=== PATIENT | female | born 1950 | race Caucasian/White ===

== ENCOUNTER 2021-04-23 06:25 | Day surgery (SDC) | payer MEDICARE, MEDICAID ==
[2021-04-23] MEDS: Lactated Ringers 1,000 ML IV SCH (07:07)
[2021-04-23] MEDS ORDERED: fentaNYL 100 MCG/2 ML SDV ONE (07:41)
[2021-04-23] MEDS ORDERED: Midazolam 1 MG/ML 2 ML SDV ONE (07:41)
[2021-04-23] MEDS ORDERED: Propofol 200 MG/20 ML SDV ONE ×2 (07:41→08:07)
--- NOTE | 2021-04-23 13:12 | OR ---
PREOPERATIVE DIAGNOSIS: History of colon polyps. POSTOPERATIVE DIAGNOSIS: Inadequate prep. PROCEDURE PERFORMED: Total flexible colonoscopy. ANESTHESIA: MAC anesthesia. COMPLICATIONS: None apparent. BLOOD LOSS: Minimal. FINDINGS: There was a large amount of liquid stool with fibrous contents throughout the colon which could not completely be suctioned. We were able to thoroughly examine approximately 70% of the mucosa. The ileocecal valve was identified but the appendix was obscured by stool. START TIME: 0746. CECUM TIME: 0807. STOP TIME: 0814. BOWEL PREP: Imperial class 1. INDICATION FOR PROCEDURE: Vonda Pandey is a 70-year-old female who reports of colonoscopy last performed 10 years ago. She reports a history of polyps. She denies currently any bloody or dark black stools. No family history of colon cancer. DETAILS OF PROCEDURE: After informed consent was obtained, the patient was brought to the procedure room, placed in left lateral decubitus position. MAC anesthesia was induced per anesthesia colleagues without incident. The colonoscope was introduced into the rectum and advanced all the way to the cecum. Advancement took quite a bit longer than usual as there was a large amount of liquid stool with fibrous contents which made identification of the lumen persistently difficult. Ultimately, we were able to identify due to the cecal valve, but the cecum contained a large amount of stool and the appendix was obscured. The colonoscope was then slowly withdrawn. No polyps were identified, although as mentioned, we were unable to make a complete evaluation of the colon. Retroflexed view was obtained. The colonoscope was removed. The patient was awoken from anesthesia by Anesthesia colleagues without incident. Recommend repeat screening colonoscopy within the next 2 years given poor prep. RKM: 04/23/2021 08:20:17 MODL: 04/23/2021 11:05:14 /[id number]
== END 2021-04-23 09:10 | disposition home or self-care (01) ==
LOC: VM.SDS 06:25
PROVIDERS: ATTEND Student in an Organized Health Care Education/Training Program
DX: Z12.11 Encounter for screening for malignant neoplasm of colon (principal); M17.11 Unilateral primary osteoarthritis, right knee; R30.0 Dysuria; E11.9 Type 2 diabetes mellitus without complications; J45.30 Mild persistent asthma, uncomplicated; I12.9 Hypertensive chronic kidney disease with stage 1 through stage 4 chronic kidney disease, or unspecified chronic kidney disease; N18.32 Chronic kidney disease, stage 3b; Z86.010 Personal history of colon polyps; Z88.2 Allergy status to sulfonamides; E66.9 Obesity, unspecified; Z68.32 Body mass index [BMI] 32.0-32.9, adult; G47.33 Obstructive sleep apnea (adult) (pediatric); E78.5 Hyperlipidemia, unspecified
CPT/HCPCS: 00811; 82947; G0121; J2250; J2704; J3010; J7120

== ENCOUNTER 2021-07-28 17:27 | Emergency (ER) | payer MEDICARE, MEDICAID ==
[2021-07-28] MEDS ORDERED: Sodium Chloride 0.9% 10 ML Syringe FLUSH PRN (17:39)
[2021-07-28] MEDS ORDERED: Aspirin 81 MG Tab.Chew PO ONE (17:40)
--- NOTE | 2021-07-28 17:42 | EDM.PDOC ---
<Sebastien Aragon - Last Filed: 07/28/21 18:58> ED HPI GENERAL MEDICAL PROBLEM - General Chief Complaint: Cardiovascular Problem Stated Complaint: CHEST PAIN Time Seen by Provider: 07/28/21 17:35 Source of Information: Reports: Patient History Limitations: Reports: No Limitations - History of Present Illness INITIAL COMMENTS - FREE TEXT/NARRATIVE: Patient comes to the ED with complaints of severe neck, jaw, back and chest pain at around 4:30 this afternoon. Reports one other episode of this in her history. No report of prior IN or CVA. No early deaths in the family from either. Her pain resolved after 30 minutes and after resting. No worsening of symptoms with movement. Not reproducible. No nausea or vomiting. No diaphoresis or pallor. Pain orignates in the neck, down to the chest and back. Pain is resolved. EMS called but she refused transportation. Daughter drove her here. During history collection states she began having body aches, chills, nausea, congestion starting on Monday of last week. No fever or chills. [place] some was a result of allergies. Fully vaccinated with either moderna or A2B, she does not recall. No numbness, no history of early familial due to aortic dissection. No neurologic deficits. Limb blood pressures within 20 mmHg systolic. Duration: Resolved Prior to Arrival Location: Reports: Neck, Chest, Back Quality: Reports: Sharp Severity: Moderate Improves with: Reports: Rest Associated Symptoms: Reports: Chest Pain - Related Data Allergies Allergy/AdvReac Type Severity Reaction Status Date / Time Sulfa (Sulfonamide Allergy Hives Verified 07/28/21 18:03 Antibiotics) Home Meds: Home Meds Metoprolol Succinate [Toprol XL] 100 mg PO DAILY 09/21/17 [History] Simvastatin [Zocor] 20 mg PO BEDTIME 09/21/17 [History] metFORMIN HCl [Metformin HCl] 1,000 mg PO BID 09/21/17 [History] Acetaminophen [Tylenol] 650 mg PO Q4H PRN 04/05/21 [History] Albuterol Sulfate [Albuterol Sulfate HFA] 2 puff INH Q4H PRN 04/05/21 [History] Budesonide/Formoterol Fumarate [Symbicort 160-4.5 Mcg Inhaler] 2 puff IH BID 04/05/21 [History] Citalopram Hydrobromide [Celexa] 40 mg PO DAILY 04/05/21 [History] Diclofenac Sodium [Voltaren 1% Gel] 2 gm TOP BID PRN 04/05/21 [History] Ferrous Sulfate 325 mg PO DAILY 04/05/21 [History] Gabapentin [Neurontin] 100 - 200 mg PO BEDTIME 04/05/21 [History] Liraglutide [Victoza 2-Guzman] 1.8 mg SQ DAILY 04/05/21 [History] Omeprazole 20 mg PO ACBREAKFAST 04/05/21 [History] Oxybutynin 5 mg PO BID 04/05/21 [History] Sennosides/Docusate Sodium [Senna-Docusate Sodium Tablet] 1 each PO BID 04/05/21 [History] allopurinoL [Zyloprim] 100 mg PO DAILY 04/05/21 [History] Past Medical History Cardiovascular History: Reports: High Cholesterol, Hypertension, Other (See Below) Other Cardiovascular History: venous insufficiency Respiratory History: Reports: Asthma, Sleep Apnea Gastrointestinal History: Reports: GERD Genitourinary History: Reports: Renal Disease, Urinary Incontinence Psychiatric History: Reports: Anxiety, Depression, PTSD, Other (See Below) Other Psychiatric History: maladaptive health behaviors affecting medical condition Endocrine/Metabolic History: Reports: Diabetes, Type II, Obesity/BMI 30+ Other Endocrine/Metabolic History: hyperkalemia Hematologic History: Reports: Anemia, Iron Deficiency Dermatologic History: Reports: Eczema - Past Surgical History HEENT Surgical History: Reports: Cataract Surgery, Tonsillectomy GI Surgical History: Reports: Colonoscopy, Other (See Below) Other GI Surgeries/Procedures: panniculectomy with umbilical hernia repair Female Surgical History: Reports: Section ED ROS GENERAL - Review of Systems Review Of Systems: See Below Constitutional: Reports: No Symptoms HEENT: Reports: No Symptoms Respiratory: Reports: No Symptoms Cardiovascular: Reports: Chest Pain Endocrine: Reports: No Symptoms GI/Abdominal: Reports: No Symptoms : Reports: No Symptoms Musculoskeletal: Reports: Neck Pain, Back Pain Skin: Reports: No Symptoms Neurological: Reports: No Symptoms Psychiatric: Reports: No Symptoms Hematologic/Lymphatic: Reports: No Symptoms Immunologic: Reports: No Symptoms ED EXAM, GENERAL - Physical Exam Exam: See Below Exam Limited By: No Limitations General Appearance: Alert, WD/WN, No Apparent Distress Ears: Normal External Exam, Normal Canal, Hearing Grossly Normal, Normal TMs Ear Exam: Bilateral Ear: Auricle Normal, Canal Normal, TM normal Nose: Normal Inspection, Normal Mucosa, No Blood Throat/Mouth: Normal Inspection, Normal Lips, Normal Teeth, Normal Gums, Normal Oropharynx, Normal Voice, No Airway Compromise Head: Atraumatic, Normocephalic Neck: Normal Inspection, Supple, Non-Tender, Full Range of Motion Respiratory/Chest: No Respiratory Distress, Lungs Clear, Normal Breath Sounds, No Accessory Muscle Use, Chest Non-Tender Cardiovascular: Normal Peripheral Pulses, Regular Rate, Rhythm, No Edema, No Gallop, No JVD, No Murmur, No Rub GI/Abdominal: Normal Bowel Sounds, Soft, Non-Tender, No Organomegaly, No Distention, No Abnormal Bruit, No Mass Back Exam: Normal Inspection, Full Range of Motion, NT Extremities: Normal Inspection, Normal Range of Motion, Non-Tender, Normal Capillary Refill, No Pedal Edema Neurological: Alert, Oriented, CN II-XII Intact, Normal Cognition, Normal Gait, Normal Reflexes, No Motor/Sensory Deficits Psychiatric: Normal Affect, Normal Mood Skin Exam: Warm, Dry, Intact, Normal Color, No Rash Lymphatic: No Adenopathy #1 Interpretation EKG Date: 07/28/21 Time: 17:27 Rhythm: NSR Rate (Beats/Min): 53 [place]: LAD-Left [place] Deviation (Slight bradycardia, left axis deviation) P-Wave: Present QRS: Normal ST-T: Normal QT: Normal Comparison: NA - No Prior EKG Departure - Departure Disposition: Home, Self-Care 01 Clinical Impression: Atypical chest pain Referrals: Renea Rivera MD [Primary Care Provider] - Forms: ED Department Discharge Additional Instructions: 1. Push fluids 2. Tylenol or ibuprofen for discomfort 3. Follow up with primary care provider if any ongoing pain or return to the ER for any recurring chest pain <Maryana Corrigan - Last Filed: 07/28/21 21:19> Course - Vital Signs Last Recorded V/S: Last Vital Signs Temp 97.8 F 07/28/21 17:30 Pulse 54 L 07/28/21 18:24 Resp 9 L 07/28/21 18:24 BP 140/65 07/28/21 18:24 Pulse Ox 96 07/28/21 18:24 - Orders/Labs/Meds Orders: Active Orders 24 hr Category Date Time Status Chest PE [Ang Chest] [CT] Stat Exams 07/28/21 18:45 Taken Sodium Chloride 0.9% [Saline Flush] Med 07/28/21 17:39 Active 10 ml FLUSH ASDIRECTED PRN Saline Lock Insert [OM.PC] Routine Oth 07/28/21 17:39 Ordered Medication Orders Sodium Chloride (Sodium Chloride 0.9% 10 Ml Syringe) 10 ml FLUSH ASDIRECTED PRN PRN Reason: Keep Vein Open Labs: Laboratory Tests 07/28/21 07/28/21 07/28/21 Range/Units 17:50 17:50 17:50 WBC 6.7 (4.0-10.0) x10^3/uL RBC 3.43 L (4.00-5.50) x10^6/uL Hgb 10.7 L (12.0-16.0) g/dL Hct 32.8 L (33.0-47.0) % MCV 95.6 H (78.0-93.0) fL MCH 31.2 (26.0-32.0) pg MCHC 32.6 (32.0-36.0) g/dL RDW Coeff of Timoteo 12.8 (10.0-15.0) % Plt Count 204 (130-400) x10^3/uL Immature Gran % (Auto) 0.30 (0.00-0.43) % Neut % (Auto) 59.3 (50.0-80.0) % Lymph % (Auto) 26.8 (25.0-50.0) % [place] % (Auto) 10.1 (2.0-11.0) % Eos % (Auto) 2.8 (0.0-4.0) % Baso % (Auto) 0.7 (0.2-1.2) % Neut # (Auto) 4.0 (1.8-7.7) x10^3/uL Lymph # (Auto) 1.8 (1.0-4.8) x10^3/uL [place] # (Auto) 0.7 (0.0-0.8) x10^3/uL Eos # (Auto) 0.2 (0.0-0.5) x10^3/uL Baso # (Auto) 0.1 (0.0-0.2) x10^3/uL Immature Gran # (Auto) 0.02 (0.00-0.07) x10^3/uL PT 9.9 (9.9-12.5) SEC INR 0.9 L (2.0-3.5) D-Dimer, Quantitative 0.95 H (<=0.58) mg/LFEU Sodium 139 (136-145) mmol/L Potassium 5.0 (3.5-5.1) mmol/L Chloride 106 (98-107) mmol/L Carbon Dioxide 28 (21-32) mmol/L Anion Gap 10.0 (5-15) mmol/L BUN 26 H (7-18) mg/dL Creatinine 1.3 H (0.55-1.02) mg/dL Est Cr Clr Drug Dosing TNP Estimated GFR (MDRD) 41 Glucose 125 H (70-99) mg/dL Calcium 7.7 L (8.5-10.1) mg/dL Corrected Calcium 8.3 L (8.5-10.1) mg/dL Magnesium 1.8 (1.8-2.4) mg/dL Total Bilirubin 0.3 (0.2-1.0) mg/dL AST 18 (15-37) U/L ALT 16 (14-59) U/L Alkaline Phosphatase 77 (46-116) U/L Troponin I High Sens 7 (<=51) ng/L C-Reactive Protein < 0.2 (<=0.9) mg/dL NT-Pro-B Natriuret Pep 606 H (<=125) pg/mL Total Protein 6.8 (6.4-8.2) g/dL Albumin 3.3 L (3.4-5.0) g/dL Globulin 3.5 Albumin/Globulin Ratio 0.94 SARS CoV-2 RNA Rapid KAYLEE (NEGATIVE) 07/28/21 Range/Units 18:14 WBC (4.0-10.0) x10^3/uL RBC (4.00-5.50) x10^6/uL Hgb (12.0-16.0) g/dL Hct (33.0-47.0) % MCV (78.0-93.0) fL MCH (26.0-32.0) pg MCHC (32.0-36.0) g/dL RDW Coeff of Timoteo (10.0-15.0) % Plt Count (130-400) x10^3/uL Immature Gran % (Auto) (0.00-0.43) % Neut % (Auto) (50.0-80.0) % Lymph % (Auto) (25.0-50.0) % [place] % (Auto) (2.0-11.0) % Eos % (Auto) (0.0-4.0) % Baso % (Auto) (0.2-1.2) % Neut # (Auto) (1.8-7.7) x10^3/uL Lymph # (Auto) (1.0-4.8) x10^3/uL [place] # (Auto) (0.0-0.8) x10^3/uL Eos # (Auto) (0.0-0.5) x10^3/uL Baso # (Auto) (0.0-0.2) x10^3/uL Immature Gran # (Auto) (0.00-0.07) x10^3/uL PT (9.9-12.5) SEC INR (2.0-3.5) D-Dimer, Quantitative (<=0.58) mg/LFEU Sodium (136-145) mmol/L Potassium (3.5-5.1) mmol/L Chloride (98-107) mmol/L Carbon Dioxide (21-32) mmol/L Anion Gap (5-15) mmol/L BUN (7-18) mg/dL Creatinine (0.55-1.02) mg/dL Est Cr Clr Drug Dosing Estimated GFR (MDRD) Glucose (70-99) mg/dL Calcium (8.5-10.1) mg/dL Corrected Calcium (8.5-10.1) mg/dL Magnesium (1.8-2.4) mg/dL Total Bilirubin (0.2-1.0) mg/dL AST (15-37) U/L ALT (14-59) U/L Alkaline Phosphatase (46-116) U/L Troponin I High Sens (<=51) ng/L C-Reactive Protein (<=0.9) mg/dL NT-Pro-B Natriuret Pep (<=125) pg/mL Total Protein (6.4-8.2) g/dL Albumin (3.4-5.0) g/dL Globulin Albumin/Globulin Ratio SARS CoV-2 RNA Rapid KAYLEE Negative (NEGATIVE) Meds: Medications Generic Name Dose Route Start Last Admin Trade Name Ismael PRN Reason Stop Dose Admin Sodium Chloride 10 ml 07/28/21 17:39 Sodium Chloride 0.9% 10 Ml Syringe FLUSH ASDIRECTED PRN Keep Vein Open Discontinued Medications Generic Name Dose Route Start Last Admin Trade Name Ismael PRN Reason Stop Dose Admin Aspirin 324 mg 07/28/21 17:40 07/28/21 17:40 Aspirin 81 Mg Tab.Chew PO 07/28/21 17:41 324 mg ONETIME ONE Administration Iopamidol 100 ml 07/28/21 20:13 07/28/21 19:50 Iopamidol 755 Mg/Ml 100 Ml Bottle IVPUSH 07/28/21 20:14 100 ml ONETIME ONE Administration - Re-Assessments/Exams Free Text/Narrative Re-Assessment/Exam: 07/28/21 21:18 CTA is negative. Departure - Departure Time of Disposition: 21:18 Condition: Good Sepsis Event Note (ED) - Focused Exam Vital Signs: Vital Signs Temp Pulse Resp BP Pulse Ox 07/28/21 18:24 54 L 9 L 140/65 96 07/28/21 18:17 55 L 15 165/55 H 98 07/28/21 17:30 97.8 F 58 L 16 169/60 H 98
--- NOTE | 2021-07-28 18:17 | CR ---
[id number] RAD/RAD Chest PA or AP 1V EXAM: RAD Chest PA or AP 1V INDICATION: CHEST PAIN. COMPARISON: None. DISCUSSION: Cardiomediastinal silhouette is normal in size and contour. No infiltrate, effusion, pneumothorax, or edema. Low lung volumes with associated vascular crowding. IMPRESSION: No acute cardiopulmonary abnormality. Jayy Meyer DO 07/28/21 1813 Thank you for allowing us to participate in the care of your patient.
[2021-07-28 18:28] LABS: CHLORIDE,CL 106 mmol/L (98-107); SODIUM,NA 139 mmol/L (136-145)
[2021-07-28] MEDS ORDERED: Iopamidol 755 Mg/ML 100 ML Bottle IVPUSH ONE (20:13)
--- NOTE | 2021-07-29 08:07 | CT ---
[id number] CT/CTA Chest EXAM: CT ANGIOGRAM CHEST INDICATION: ELEVATED D-DIMER. CHEST PAIN COMPARISON: None. DISCUSSION: No large central or lobar pulmonary arterial filling defects to suggest acute pulmonary embolism. Evaluation of the segmental and subsegmental pulmonary arteries is limited secondary to suboptimal bolus. There are no secondary signs of acute pulmonary embolism. No airspace consolidation. No pneumothorax or pleural effusion. Coronary artery disease. Atherosclerotic calcifications of the aortaNo pleural or pericardial effusion. Normal heart size. No mediastinal, hilar or axillary lymphadenopathy. Moderate hiatal hernia. IMPRESSION: 1. No evidence of acute pulmonary embolism. Jayy Meyer DO 07/29/21 0806 Thank you for allowing us to participate in the care of your patient.
== END 2021-07-28 21:20 | disposition home or self-care (01) ==
LOC: VM.ED 17:27
DX: R07.89 Other chest pain (principal); E78.00 Pure hypercholesterolemia, unspecified; I10 Essential (primary) hypertension; E11.9 Type 2 diabetes mellitus without complications; K21.9 Gastro-esophageal reflux disease without esophagitis; E66.9 Obesity, unspecified; Z68.30 Body mass index [BMI] 30.0-30.9, adult; Z79.899 Other long term (current) drug therapy; Z79.84 Long term (current) use of oral hypoglycemic drugs
CPT/HCPCS: 71045; 71275; 80053; 83735; 83880; 84484; 85025; 85379; 85610; 86140; 93005; 93010; 99284; 99285-25; A9270-GY; Q9967; U0002

== ENCOUNTER 2021-11-30 13:15 | Observation (INO) | payer MEDICARE, MEDICAID ==
[2021-11-30] MEDS ORDERED: Acetaminophen/HYDROcodone 325-5 MG Tab PO ONE (13:48)
[2021-11-30] MEDS: Acetaminophen/HYDROcodone 325-5 MG Tab PO PRN ×2 (17:17→21:06)
[2021-11-30] MEDS ORDERED: Albuterol HFA 18 Gm Inhaler **OWN MED INH PRN (18:34)
[2021-11-30] MEDS: Morphine 2 MG/ML SYRINGE IVPUSH PRN (18:38)
[2021-11-30] MEDS: metFORMIN 500 MG Tab PO SCH (19:29)
[2021-11-30] MEDS: Oxybutynin 5 MG Tab PO SCH (20:53)
[2021-11-30] MEDS ORDERED: Lisinopril 20 MG Tab PO STA ×2 (21:19→23:54)
[2021-11-30] MEDS ORDERED: Morphine 4 MG/ML Syringe IVPUSH STA (22:03)
[2021-11-30] MEDS: Ondansetron 4 MG/2 ML SDV IVPUSH PRN (22:19)
[2021-11-30] MEDS: SYMBICORT PO SCH (22:51)
[2021-11-30] MEDS: VICTOZA 18 MG/3 ML SUBCUT SCH (22:53)
[2021-12-01] MEDS: Acetaminophen/HYDROcodone 325-5 MG Tab PO PRN ×4 (01:39→18:33)
[2021-12-01] MEDS: Morphine 2 MG/ML SYRINGE IVPUSH PRN (04:23)
[2021-12-01] MEDS: Ondansetron 4 MG/2 ML SDV IVPUSH PRN ×3 (04:27→18:33)
[2021-12-01] MEDS: Omeprazole 20 MG Cap.CR PO SCH (07:21)
[2021-12-01] MEDS: Oxybutynin 5 MG Tab PO SCH ×2 (07:21→20:00)
[2021-12-01] MEDS: Metoprolol Succinate 50 MG Tab.ER PO SCH (07:21)
[2021-12-01] MEDS: metFORMIN 500 MG Tab PO SCH ×2 (07:22→17:29)
[2021-12-01] MEDS: VICTOZA 18 MG/3 ML SUBCUT SCH (07:24)
[2021-12-01] MEDS: SYMBICORT PO SCH ×2 (07:24→20:12)
[2021-12-01] MEDS: HYDROmorphone 0.5 MG/0.5 ML Syringe IVPUSH PRN ×3 (09:07→20:00)
[2021-12-01 09:16] LABS: ANION GAP 11.4 mmol/L (5-15)
[2021-12-01] MEDS ORDERED: Albuterol HFA 18 Gm Inhaler INH PRN (11:55)
[2021-12-02] MEDS: Acetaminophen/HYDROcodone 325-5 MG Tab PO PRN ×3 (01:35→12:33)
[2021-12-02] MEDS: HYDROmorphone 0.5 MG/0.5 ML Syringe IVPUSH PRN ×2 (04:46→09:22)
[2021-12-02] MEDS: Ondansetron 4 MG/2 ML SDV IVPUSH PRN ×2 (04:46→09:22)
[2021-12-02] MEDS: Omeprazole 20 MG Cap.CR PO SCH (07:45)
[2021-12-02] MEDS: metFORMIN 500 MG Tab PO SCH (07:46)
[2021-12-02] MEDS: Metoprolol Succinate 50 MG Tab.ER PO SCH (07:46)
[2021-12-02] MEDS: Oxybutynin 5 MG Tab PO SCH (07:47)
[2021-12-02] MEDS: VICTOZA 18 MG/3 ML SUBCUT SCH (07:51)
[2021-12-02] MEDS: SYMBICORT PO SCH (07:51)
[2021-12-02] MEDS ORDERED: Allopurinol 100 MG Tab PO SCH (08:00)
[2021-12-02] MEDS ORDERED: Citalopram 20 MG Tab PO SCH (08:00)
== END 2021-12-02 13:55 | disposition home health service (06) ==
LOC: VM.ED 13:15 → VM.MS 16:16
PROVIDERS: ADMIT Physician Assistant Medical; ATTEND Internal Medicine
DX: S82.001A Unspecified fracture of right patella, initial encounter for closed fracture (principal); D50.9 Iron deficiency anemia, unspecified; E78.00 Pure hypercholesterolemia, unspecified; K21.9 Gastro-esophageal reflux disease without esophagitis; F41.9 Anxiety disorder, unspecified; F32.A Depression, unspecified; E66.9 Obesity, unspecified; E11.22 Type 2 diabetes mellitus with diabetic chronic kidney disease; I12.9 Hypertensive chronic kidney disease with stage 1 through stage 4 chronic kidney disease, or unspecified chronic kidney disease; G47.33 Obstructive sleep apnea (adult) (pediatric); J45.20 Mild intermittent asthma, uncomplicated; N39.3 Stress incontinence (female) (male); N18.30 Chronic kidney disease, stage 3 unspecified; Z88.2 Allergy status to sulfonamides; Z79.899 Other long term (current) drug therapy; W19.XXXA Unspecified fall, initial encounter; Z79.84 Long term (current) use of oral hypoglycemic drugs; Z98.890 Other specified postprocedural states
CPT/HCPCS: 36415; 73562-RT; 80048; 82947; 85025; 96365; 96374; 96375; 96376; 97116-GP; 97161-GP; 97165-GO; 97530-GP; 99220; 99285-25; A9270-GY; G0378; J1170; J1439; J2270; J2405

== ENCOUNTER 2022-01-08 20:46 | Emergency (ER) | payer MEDICARE, MEDICAID ==
[2022-01-08] MEDS: Apixaban 2.5 MG Tab PO ONE (22:34)
[2022-01-08] MEDS: Furosemide 40 MG Tab PO ONE (22:35)
== END 2022-01-08 22:36 | disposition home or self-care (01) ==
LOC: VM.ED 20:46
DX: I13.0 Hypertensive heart and chronic kidney disease with heart failure and stage 1 through stage 4 chronic kidney disease, or unspecified chronic kidney disease (principal); E11.22 Type 2 diabetes mellitus with diabetic chronic kidney disease; N18.30 Chronic kidney disease, stage 3 unspecified; I50.9 Heart failure, unspecified; D63.1 Anemia in chronic kidney disease; R79.89 Other specified abnormal findings of blood chemistry; E78.00 Pure hypercholesterolemia, unspecified; E66.9 Obesity, unspecified; Z88.2 Allergy status to sulfonamides; Z79.01 Long term (current) use of anticoagulants; Z68.35 Body mass index [BMI] 35.0-35.9, adult; Z79.84 Long term (current) use of oral hypoglycemic drugs; Z79.899 Other long term (current) drug therapy
CPT/HCPCS: 36415; 71046; 80053; 83880; 85025; 85379; 86140; 99283-25; 99284

== ENCOUNTER 2022-09-29 07:03 | Day surgery (SDC) | payer MEDICARE, OTHER, MEDICAID ==
[~2022-09-29 07:03] MED LIST: Lactated Ringers 1,000 ML IV SCH
[2022-09-29] MEDS ORDERED: fentaNYL 100 MCG/2 ML SDV ONE (08:24)
[2022-09-29] MEDS ORDERED: Propofol 200 MG/20 ML SDV ONE ×3 (08:24→09:00)
== END 2022-09-29 10:35 | disposition home or self-care (01) ==
LOC: VM.SDS 07:03
PROVIDERS: ATTEND Family Medicine
DX: D12.0 Benign neoplasm of cecum (principal); I12.9 Hypertensive chronic kidney disease with stage 1 through stage 4 chronic kidney disease, or unspecified chronic kidney disease; N18.30 Chronic kidney disease, stage 3 unspecified; K21.9 Gastro-esophageal reflux disease without esophagitis; D63.1 Anemia in chronic kidney disease; E11.22 Type 2 diabetes mellitus with diabetic chronic kidney disease; J45.909 Unspecified asthma, uncomplicated; G47.33 Obstructive sleep apnea (adult) (pediatric); E66.9 Obesity, unspecified; E78.5 Hyperlipidemia, unspecified; E87.5 Hyperkalemia; F32.A Depression, unspecified; E53.8 Deficiency of other specified B group vitamins; Z98.890 Other specified postprocedural states; Z79.899 Other long term (current) drug therapy; Z79.84 Long term (current) use of oral hypoglycemic drugs; Z88.2 Allergy status to sulfonamides; Z87.891 Personal history of nicotine dependence
CPT/HCPCS: 00811; 82947; 88305; J2704; J3010; J7120

== ENCOUNTER 2023-03-18 18:11 | Emergency (ER) | payer MEDICARE, OTHER, MEDICAID | END 2023-03-18 18:34 | disposition home or self-care (01) | LOC: VM.ED 18:11 | DX: R60.0 Localized edema (principal); E78.00 Pure hypercholesterolemia, unspecified; I12.9 Hypertensive chronic kidney disease with stage 1 through stage 4 chronic kidney disease, or unspecified chronic kidney disease; E11.22 Type 2 diabetes mellitus with diabetic chronic kidney disease; N18.30 Chronic kidney disease, stage 3 unspecified; D63.1 Anemia in chronic kidney disease; J45.909 Unspecified asthma, uncomplicated; E66.9 Obesity, unspecified; Z68.30 Body mass index [BMI] 30.0-30.9, adult; Z88.2 Allergy status to sulfonamides; Z79.899 Other long term (current) drug therapy | CPT/HCPCS: 99283; 99284 ==

== ENCOUNTER 2023-10-19 18:01 | Inpatient (IN) | payer MEDICAID, MEDICARE, OTHER ==
[2023-10-19 18:30] LABS: BASOPHILS PERCENT AUTO 0.3 % (0.2-1.2); EOSINOPHILS ABSOLUTE AUTO 0.2 x10^3/uL (0.0-0.5); EOSINOPHILS PERCENT AUTO 2.6 % (0.0-4.0); HEMATOCRIT 36.6 % (33.0-47.0); HEMOGLOBIN 11.5 g/dL (12.0-16.0); IMMATURE GRAN ABSOLUTE AUTO 0.03 x10^3/uL (0.00-0.07); LYMPHOCYTES ABSOLUTE AUTO 1.5 x10^3/uL (1.0-4.8); LYMPHOCYTES PERCENT AUTO 22.2 % (25.0-50.0); MEAN CORPUSCULAR HEMOGLOBIN 31.4 pg (26.0-32.0); MEAN CORPUSCULAR HGB CONC 31.4 g/dL (32.0-36.0); MONOCYTES ABSOLUTE AUTO 0.6 x10^3/uL (0.0-0.8); MONOCYTES PERCENT AUTO 9.6 % (2.0-11.0); NEUTROPHILS ABSOLUTE AUTO 4.2 x10^3/uL (1.8-7.7); NEUTROPHILS PERCENT AUTO 64.8 % (50.0-80.0); PLATELET COUNT,PLT 196 x10^3/uL (130-400); RED BLOOD CELL COUNT 3.66 x10^6/uL (4.00-5.50); WHITE BLOOD CELL COUNT,WBC 6.5 x10^3/uL (4.0-10.0)
[2023-10-19 18:47] LABS: A/G RATIO 0.81; ALBUMIN 3.4 g/dL (3.4-5.0); BILIRUBIN TOTAL 0.3 mg/dL (0.2-1.0); CALCIUM 9.5 mg/dL (8.5-10.1); EST CRCL DRUG DOSING (CG) 11.62 mL/min; POTASSIUM,K 4.9 mmol/L (3.5-5.1); PROTEIN TOTAL,TP 7.6 g/dL (6.4-8.2)
[2023-10-19 18:49] LABS: ANION GAP 18.9 mmol/L (5-15)
[2023-10-19 18:50] LABS: CREATININE 3.4 mg/dL (0.55-1.02)
[2023-10-19 19:00] LABS: BILIRUBIN,URINE SMALL (NEGATIVE); COLOR,URINE YELLOW (YELLOW); GLUCOSE,URINE NEGATIVE (NEGATIVE); KETONES,URINE NEGATIVE (NEGATIVE); LEUKOCYTE ESTERASE,URINE MODERATE (NEGATIVE); NITRITE,URINE NEGATIVE (NEGATIVE); OCCULT BLOOD,URINE NEGATIVE (NEGATIVE); PH,URINE 5.5 (5.0-8.0); PROTEIN,URINE NEGATIVE (NEGATIVE); UROBILINOGEN,URINE 0.2 EU/dL (0.2)
[2023-10-19 19:02] LABS: APPEARANCE,URINE CLOUDY (CLEAR)
[2023-10-19 19:03] LABS: BACTERIA,URINE MANY /HPF (NOT SEEN); MUCUS,URINE OCCASIONAL /LPF (NOT SEEN); RBC,URINE 0-5 /HPF (NOT SEEN); SQUAMOUS EPITHELIAL CELLS,UR OCCASIONAL /HPF (NOT SEEN); WBC,URINE 20-30 /HPF (NOT SEEN)
[2023-10-19 19:20] LABS: CORONAVIRUS COVID-19 NAA NEGATIVE (NEGATIVE); INFLUENZA A NAA NEGATIVE (NEGATIVE); INFLUENZA B NAA NEGATIVE (NEGATIVE); RESPIRATORY SYNCYTIAL VIR NAA NEGATIVE (NEGATIVE)
[2023-10-19] MEDS ORDERED: cefTRIAXone 1 GM Vial IVPUSH ONE (19:25)
[2023-10-19] MEDS: Sodium Chloride 0.9% 1,000 ML IV SCH (19:50)
[2023-10-19] MEDS ORDERED: Glucagon,Human Recombinant 1 MG Vial IM PRN (20:07)
[2023-10-19] MEDS ORDERED: 50% Dextrose in Water 50 ML Syringe IVPUSH PRN (20:07)
[2023-10-19] MEDS ORDERED: Camphor/Menthol 0.5-0.5% Lotion 222 ML Bottle TOP PRN (21:01)
[2023-10-19] MEDS: Insulin Lispro 100 Units/ML 3 ML Vial SUBCUT SCH (21:04)
[2023-10-19 21:23] LABS: LACTIC ACID 0.7 mmol/L (0.4-2.0)
[2023-10-19] MEDS ORDERED: Albuterol 0.083% 2.5 MG/3 ML Neb Soln INH PRN (21:40)
[2023-10-19] MEDS ORDERED: Non-Formulary Medication 1 Each (Ondansetron [Ondansetron Odt] 8 MG Tab.Rapdis) PO PRN (21:40)
[2023-10-19] MEDS ORDERED: Triamcinolone Acetonide 0.1% Crm 15 GM Tube TOP PRN (21:40)
[2023-10-20] MEDS: Sodium Chloride 0.9% 1,000 ML IV SCH ×4 (01:50→20:19)
[2023-10-20] MEDS: Pantoprazole 40 MG Tab.CR PO SCH (06:23)
[2023-10-20 06:42] LABS: BASOPHILS PERCENT AUTO 0.7 % (0.2-1.2); EOSINOPHILS ABSOLUTE AUTO 0.2 x10^3/uL (0.0-0.5); EOSINOPHILS PERCENT AUTO 3.9 % (0.0-4.0); HEMATOCRIT 31.7 % (33.0-47.0); HEMOGLOBIN 10.1 g/dL (12.0-16.0); IMMATURE GRAN ABSOLUTE AUTO 0.03 x10^3/uL (0.00-0.07); LYMPHOCYTES ABSOLUTE AUTO 1.1 x10^3/uL (1.0-4.8); LYMPHOCYTES PERCENT AUTO 19.2 % (25.0-50.0); MEAN CORPUSCULAR HEMOGLOBIN 31.6 pg (26.0-32.0); MEAN CORPUSCULAR HGB CONC 31.9 g/dL (32.0-36.0); MEAN CORPUSCULAR VOLUME 99.1 fL (78.0-93.0); MONOCYTES ABSOLUTE AUTO 0.6 x10^3/uL (0.0-0.8); MONOCYTES PERCENT AUTO 10.5 % (2.0-11.0); NEUTROPHILS ABSOLUTE AUTO 3.9 x10^3/uL (1.8-7.7); NEUTROPHILS PERCENT AUTO 65.2 % (50.0-80.0); PLATELET COUNT,PLT 156 x10^3/uL (130-400); WHITE BLOOD CELL COUNT,WBC 5.9 x10^3/uL (4.0-10.0)
[2023-10-20 07:12] LABS: A/G RATIO 0.73; ALBUMIN 2.7 g/dL (3.4-5.0); ANION GAP 14.2 mmol/L (5-15); BILIRUBIN TOTAL 0.3 mg/dL (0.2-1.0); C-REACTIVE PROTEIN 0.78 mg/dL (<=0.50); CALCIUM 8.5 mg/dL (8.5-10.1); CREATININE 2.7 mg/dL (0.55-1.02); EST CRCL DRUG DOSING (CG) 14.63 mL/min; POTASSIUM,K 4.2 mmol/L (3.5-5.1); PROTEIN TOTAL,TP 6.4 g/dL (6.4-8.2)
[2023-10-20] MEDS: Ondansetron 4 MG/2 ML SDV IV PRN ×2 (07:19→18:07)
[2023-10-20] MEDS: Metoprolol Succinate 50 MG Tab.ER PO SCH (08:22)
[2023-10-20] MEDS: cefTRIAXone 1 GM Vial IVPUSH SCH (08:22)
[2023-10-20] MEDS: Aspirin 81 MG Tab.EC PO SCH (08:22)
[2023-10-20] MEDS: Furosemide 20 MG Tab PO SCH (08:22)
[2023-10-20] MEDS: Citalopram 20 MG Tab PO SCH (08:23)
[2023-10-20] MEDS: buPROPion 150 MG Tab.ER PO SCH (08:23)
[2023-10-20] MEDS: Calcitriol 0.25 MCG Cap PO SCH (08:23)
[2023-10-20] MEDS: Formoterol/Mometasone 200-5 MCG 13 GM Inhaler INH SCH ×2 (08:24→20:20)
[2023-10-20] MEDS: Insulin Lispro 100 Units/ML 3 ML Vial SUBCUT SCH ×4 (08:24→20:09)
[2023-10-20] MEDS ORDERED: Furosemide 40 MG Tab PO SCH (09:00)
[2023-10-20] MEDS: Sennosides 8.6 MG Tab PO SCH ×2 (11:17→20:24)
[2023-10-20] MEDS: Enoxaparin 30 MG/0.3 ML Syringe SUBCUT SCH (11:17)
[2023-10-20] MEDS: Acetaminophen 325 MG Tab PO PRN (14:24)
[2023-10-20] MEDS ORDERED: cefTRIAXone 1 GM Vial IVPUSH ONE (19:25)
[2023-10-20] MEDS: traZODone 50 MG Tab PO SCH (20:19)
[2023-10-20] MEDS: Trospium 20 MG Tab PO SCH (20:19)
[2023-10-21] MEDS: Sodium Chloride 0.9% 1,000 ML IV SCH ×4 (02:42→20:04)
[2023-10-21] MEDS: Pantoprazole 40 MG Tab.CR PO SCH (06:18)
[2023-10-21] MEDS: Insulin Lispro 100 Units/ML 3 ML Vial SUBCUT SCH ×4 (08:05→20:04)
[2023-10-21 08:10] LABS: BASOPHILS PERCENT AUTO 0.5 % (0.2-1.2); EOSINOPHILS ABSOLUTE AUTO 0.3 x10^3/uL (0.0-0.5); EOSINOPHILS PERCENT AUTO 4.5 % (0.0-4.0); HEMATOCRIT 33.8 % (33.0-47.0); HEMOGLOBIN 10.7 g/dL (12.0-16.0); IMMATURE GRAN ABSOLUTE AUTO 0.02 x10^3/uL (0.00-0.07); LYMPHOCYTES ABSOLUTE AUTO 0.9 x10^3/uL (1.0-4.8); LYMPHOCYTES PERCENT AUTO 15.6 % (25.0-50.0); MEAN CORPUSCULAR HEMOGLOBIN 31.2 pg (26.0-32.0); MEAN CORPUSCULAR HGB CONC 31.7 g/dL (32.0-36.0); MEAN CORPUSCULAR VOLUME 98.5 fL (78.0-93.0); MONOCYTES ABSOLUTE AUTO 0.6 x10^3/uL (0.0-0.8); MONOCYTES PERCENT AUTO 9.7 % (2.0-11.0); NEUTROPHILS ABSOLUTE AUTO 4.1 x10^3/uL (1.8-7.7); NEUTROPHILS PERCENT AUTO 69.4 % (50.0-80.0); PLATELET COUNT,PLT 164 x10^3/uL (130-400); RED BLOOD CELL COUNT 3.43 x10^6/uL (4.00-5.50)
[2023-10-21 08:26] LABS: CALCIUM 8.5 mg/dL (8.5-10.1); CREATININE 1.8 mg/dL (0.55-1.02); EST CRCL DRUG DOSING (CG) 21.94 mL/min
[2023-10-21] MEDS: Aspirin 81 MG Tab.EC PO SCH (09:09)
[2023-10-21] MEDS: cefTRIAXone 1 GM Vial IVPUSH SCH (09:09)
[2023-10-21] MEDS: Citalopram 20 MG Tab PO SCH (09:10)
[2023-10-21] MEDS: Calcitriol 0.25 MCG Cap PO SCH (09:11)
[2023-10-21] MEDS: buPROPion 150 MG Tab.ER PO SCH (09:11)
[2023-10-21] MEDS: Furosemide 20 MG Tab PO SCH (09:11)
[2023-10-21] MEDS: Sennosides 8.6 MG Tab PO SCH ×2 (09:11→20:04)
[2023-10-21] MEDS: Metoprolol Succinate 50 MG Tab.ER PO SCH (09:12)
[2023-10-21] MEDS: Acetaminophen 325 MG Tab PO PRN (09:14)
[2023-10-21] MEDS: Formoterol/Mometasone 200-5 MCG 13 GM Inhaler INH SCH ×2 (09:15→20:04)
[2023-10-21] MEDS: Enoxaparin 30 MG/0.3 ML Syringe SUBCUT SCH (11:30)
[2023-10-21] MEDS: Trospium 20 MG Tab PO SCH (20:04)
[2023-10-21] MEDS: traZODone 50 MG Tab PO SCH (20:04)
[2023-10-22] MEDS: Pantoprazole 40 MG Tab.CR PO SCH (06:00)
[2023-10-22] MEDS: Acetaminophen 325 MG Tab PO PRN (06:00)
[2023-10-22] MEDS: Sodium Chloride 0.9% 1,000 ML IV SCH ×2 (06:01→12:35)
[2023-10-22 08:23] LABS: HEMATOCRIT 36.4 % (33.0-47.0); HEMOGLOBIN 11.5 g/dL (12.0-16.0); MEAN CORPUSCULAR HEMOGLOBIN 31.2 pg (26.0-32.0); MEAN CORPUSCULAR HGB CONC 31.6 g/dL (32.0-36.0); MEAN CORPUSCULAR VOLUME 98.6 fL (78.0-93.0); RED BLOOD CELL COUNT 3.69 x10^6/uL (4.00-5.50); WHITE BLOOD CELL COUNT,WBC 6.9 x10^3/uL (4.0-10.0)
[2023-10-22 08:40] LABS: CALCIUM 8.7 mg/dL (8.5-10.1); CREATININE 1.4 mg/dL (0.55-1.02); EST CRCL DRUG DOSING (CG) 28.21 mL/min; POTASSIUM,K 3.7 mmol/L (3.5-5.1)
[2023-10-22 08:42] LABS: ANION GAP 13.7 mmol/L (5-15)
[2023-10-22] MEDS: Calcitriol 0.25 MCG Cap PO SCH (08:52)
[2023-10-22] MEDS: cefTRIAXone 1 GM Vial IVPUSH SCH (08:52)
[2023-10-22] MEDS: Aspirin 81 MG Tab.EC PO SCH (08:52)
[2023-10-22] MEDS: Metoprolol Succinate 50 MG Tab.ER PO SCH (08:53)
[2023-10-22] MEDS: buPROPion 150 MG Tab.ER PO SCH (08:53)
[2023-10-22] MEDS: Furosemide 20 MG Tab PO SCH (08:53)
[2023-10-22] MEDS: Citalopram 20 MG Tab PO SCH (08:53)
[2023-10-22] MEDS: Sennosides 8.6 MG Tab PO SCH ×2 (08:53→20:00)
[2023-10-22] MEDS: Formoterol/Mometasone 200-5 MCG 13 GM Inhaler INH SCH ×2 (08:54→20:00)
[2023-10-22] MEDS: Insulin Lispro 100 Units/ML 3 ML Vial SUBCUT SCH ×4 (08:54→20:00)
[2023-10-22] MEDS: Enoxaparin 30 MG/0.3 ML Syringe SUBCUT SCH (12:17)
[2023-10-22] MEDS: Trospium 20 MG Tab PO SCH (20:00)
[2023-10-22] MEDS: traZODone 50 MG Tab PO SCH (20:00)
[2023-10-23] MEDS: Acetaminophen 325 MG Tab PO PRN (00:44)
[2023-10-23] MEDS: Sodium Chloride 0.9% 1,000 ML IV SCH (00:46)
[2023-10-23] MEDS: Pantoprazole 40 MG Tab.CR PO SCH (06:26)
[2023-10-23 08:09] LABS: CALCIUM 8.9 mg/dL (8.5-10.1); CREATININE 1.4 mg/dL (0.55-1.02); EST CRCL DRUG DOSING (CG) 28.21 mL/min; POTASSIUM,K 4.1 mmol/L (3.5-5.1)
[2023-10-23 08:11] LABS: ANION GAP 11.1 mmol/L (5-15)
[2023-10-23] MEDS: Citalopram 20 MG Tab PO SCH (08:19)
[2023-10-23] MEDS: Sennosides 8.6 MG Tab PO SCH (08:19)
[2023-10-23] MEDS: buPROPion 150 MG Tab.ER PO SCH (08:19)
[2023-10-23] MEDS: Calcitriol 0.25 MCG Cap PO SCH (08:19)
[2023-10-23] MEDS: cefTRIAXone 1 GM Vial IVPUSH SCH (08:19)
[2023-10-23] MEDS: Aspirin 81 MG Tab.EC PO SCH (08:19)
[2023-10-23] MEDS: Furosemide 20 MG Tab PO SCH (08:19)
[2023-10-23] MEDS: Insulin Lispro 100 Units/ML 3 ML Vial SUBCUT SCH ×2 (08:20→12:00)
[2023-10-23] MEDS: Metoprolol Succinate 50 MG Tab.ER PO SCH (08:20)
[2023-10-23] MEDS: Formoterol/Mometasone 200-5 MCG 13 GM Inhaler INH SCH (08:21)
[2023-10-23] MEDS: Enoxaparin 30 MG/0.3 ML Syringe SUBCUT SCH (12:02)
== END 2023-10-23 14:05 | disposition home or self-care (01) | DRG 683 ==
LOC: VM.ED 18:01 → SUPCPDRO 18:01 → VM.MS 19:45
PROVIDERS: ADMIT Family Medicine; ATTEND Internal Medicine
DX: N17.9 Acute kidney failure, unspecified (principal); I13.0 Hypertensive heart and chronic kidney disease with heart failure and stage 1 through stage 4 chronic kidney disease, or unspecified chronic kidney disease; I50.30 Unspecified diastolic (congestive) heart failure; N30.00 Acute cystitis without hematuria; T50.995A Adverse effect of other drugs, medicaments and biological substances, initial encounter; N39.0 Urinary tract infection, site not specified; J45.909 Unspecified asthma, uncomplicated; I12.9 Hypertensive chronic kidney disease with stage 1 through stage 4 chronic kidney disease, or unspecified chronic kidney disease; F41.9 Anxiety disorder, unspecified; F32.A Depression, unspecified; E11.22 Type 2 diabetes mellitus with diabetic chronic kidney disease; N18.30 Chronic kidney disease, stage 3 unspecified; E11.3593 Type 2 diabetes mellitus with proliferative diabetic retinopathy without macular edema, bilateral; G47.33 Obstructive sleep apnea (adult) (pediatric); E11.51 Type 2 diabetes mellitus with diabetic peripheral angiopathy without gangrene; I73.9 Peripheral vascular disease, unspecified; N18.32 Chronic kidney disease, stage 3b; N39.3 Stress incontinence (female) (male); K59.09 Other constipation; E78.00 Pure hypercholesterolemia, unspecified; Z88.1 Allergy status to other antibiotic agents; I10 Essential (primary) hypertension; K21.9 Gastro-esophageal reflux disease without esophagitis; Z98.49 Cataract extraction status, unspecified eye; Z90.89 Acquired absence of other organs; Z98.890 Other specified postprocedural states; E11.9 Type 2 diabetes mellitus without complications; E66.9 Obesity, unspecified; Z88.2 Allergy status to sulfonamides; Z88.6 Allergy status to analgesic agent; Z91.041 Radiographic dye allergy status; Z88.8 Allergy status to other drugs, medicaments and biological substances; Z79.899 Other long term (current) drug therapy; Z20.822 Contact with and (suspected) exposure to COVID-19; Z68.37 Body mass index [BMI] 37.0-37.9, adult
CPT/HCPCS: 0241U; 36415; 80048; 80053; 81001; 82550; 82607; 82947; 83605; 83690; 83880; 84145; 85025; 85027; 86140; 87086; 87088; 87186; 96374; 97162-GP; 99284; 99285-25; A9270-GY; J0696; J1650; J2405; J7030

== ENCOUNTER 2024-03-29 07:51 | Day surgery (SDC) | payer MEDICARE, OTHER ==
[2024-03-29] MEDS: Lactated Ringers 1,000 ML IV SCH (08:07)
[2024-03-29] MEDS ORDERED: fentaNYL 100 MCG/2 ML SDV ONE (09:19)
[2024-03-29] MEDS ORDERED: Propofol 200 MG/20 ML SDV ONE (09:19)
[2024-03-29] MEDS ORDERED: Midazolam 1 MG/ML 2 ML SDV ONE (09:19)
[2024-03-29] MEDS ORDERED: Lidocaine 4% 5 ML Amp ONE (10:01)
== END 2024-03-29 11:42 | disposition home or self-care (01) ==
LOC: VM.SDS 07:51
PROVIDERS: ATTEND Student in an Organized Health Care Education/Training Program
DX: K31.7 Polyp of stomach and duodenum (principal); K44.9 Diaphragmatic hernia without obstruction or gangrene; I13.0 Hypertensive heart and chronic kidney disease with heart failure and stage 1 through stage 4 chronic kidney disease, or unspecified chronic kidney disease; E11.22 Type 2 diabetes mellitus with diabetic chronic kidney disease; I50.32 Chronic diastolic (congestive) heart failure; N18.32 Chronic kidney disease, stage 3b; E11.51 Type 2 diabetes mellitus with diabetic peripheral angiopathy without gangrene; K21.9 Gastro-esophageal reflux disease without esophagitis; J45.30 Mild persistent asthma, uncomplicated; F33.1 Major depressive disorder, recurrent, moderate; E66.01 Morbid (severe) obesity due to excess calories; Z79.82 Long term (current) use of aspirin; Z79.899 Other long term (current) drug therapy; Z88.2 Allergy status to sulfonamides; Z88.6 Allergy status to analgesic agent; Z88.8 Allergy status to other drugs, medicaments and biological substances
CPT/HCPCS: 00731; 82947; 88305; 99100; J2250; J2704; J3010; J7120

== ENCOUNTER 2024-05-14 17:22 | Emergency (ER) | payer MEDICARE, OTHER ==
[2024-05-14 18:05] LABS: BASOPHILS PERCENT AUTO 0.4 % (0.2-1.2); EOSINOPHILS PERCENT AUTO 0.4 % (0.0-4.0); HEMATOCRIT 37.9 % (33.0-47.0); HEMOGLOBIN 12.3 g/dL (12.0-16.0); IMMATURE GRAN ABSOLUTE AUTO 0.02 x10^3/uL (0.00-0.07); LYMPHOCYTES ABSOLUTE AUTO 1.2 x10^3/uL (1.0-4.8); LYMPHOCYTES PERCENT AUTO 15.3 % (25.0-50.0); MEAN CORPUSCULAR HEMOGLOBIN 31.9 pg (26.0-32.0); MEAN CORPUSCULAR HGB CONC 32.5 g/dL (32.0-36.0); MEAN CORPUSCULAR VOLUME 98.4 fL (78.0-93.0); MONOCYTES ABSOLUTE AUTO 0.6 x10^3/uL (0.0-0.8); MONOCYTES PERCENT AUTO 8.3 % (2.0-11.0); NEUTROPHILS ABSOLUTE AUTO 5.8 x10^3/uL (1.8-7.7); NEUTROPHILS PERCENT AUTO 75.3 % (50.0-80.0); PLATELET COUNT,PLT 208 x10^3/uL (130-400); RED BLOOD CELL COUNT 3.85 x10^6/uL (4.00-5.50); WHITE BLOOD CELL COUNT,WBC 7.7 x10^3/uL (4.0-10.0)
[2024-05-14] MEDS: Lactated Ringers 1,000 ML IV SCH ×2 (18:05→19:31)
[2024-05-14] MEDS: Ondansetron 4 MG/2 ML SDV IVPUSH ONE (18:05)
[2024-05-14 18:23] LABS: ALANINE AMINOTRANSFERASE,ALT 14 U/L (14-59); ALBUMIN 3.8 g/dL (3.4-5.0); ALKALINE PHOSPHATASE 92 U/L (46-116); ASPARTATE AMNIOTRANSFERASE,AST 19 U/L (15-37); BILIRUBIN TOTAL 0.5 mg/dL (0.2-1.0); BLOOD UREA NITROGEN,BUN 48 mg/dL (7-18); CALCIUM 9.8 mg/dL (8.5-10.1); CARBON DIOXIDE,CO2 29 mmol/L (21-32); CHLORIDE,CL 99 mmol/L (98-107); CREATININE 1.9 mg/dL (0.55-1.02); GLUCOSE RANDOM 182 mg/dL (70-99); POTASSIUM,K 4.3 mmol/L (3.5-5.1); SODIUM,NA 141 mmol/L (136-145)
[2024-05-14 18:25] LABS: ANION GAP 17.3 mmol/L (5-15); ESTIMATED GFR 28 mL/min (>=60)
[2024-05-14] MEDS: Metoclopramide 10 MG/2 ML SDV IVPUSH ONE (18:41)
[2024-05-14 19:01] LABS: CORONAVIRUS COVID-19 NAA NEGATIVE (NEGATIVE); INFLUENZA A NAA NEGATIVE (NEGATIVE); INFLUENZA B NAA NEGATIVE (NEGATIVE); RESPIRATORY SYNCYTIAL VIR NAA NEGATIVE (NEGATIVE)
[2024-05-14 20:06] LABS: ANION GAP 14.3 mmol/L (5-15); BLOOD UREA NITROGEN,BUN 45 mg/dL (7-18); CALCIUM 9.2 mg/dL (8.5-10.1); CARBON DIOXIDE,CO2 30 mmol/L (21-32); CHLORIDE,CL 102 mmol/L (98-107); CREATININE 1.7 mg/dL (0.55-1.02); ESTIMATED GFR 32 mL/min (>=60); GLUCOSE RANDOM 147 mg/dL (70-99); POTASSIUM,K 4.3 mmol/L (3.5-5.1); SODIUM,NA 142 mmol/L (136-145)
[2024-05-14 20:11] LABS: APPEARANCE,URINE CLEAR (CLEAR); BILIRUBIN,URINE SMALL (NEGATIVE); COLOR,URINE YELLOW (YELLOW); GLUCOSE,URINE NEGATIVE (NEGATIVE); KETONES,URINE 15 mg/dL (NEGATIVE); LEUKOCYTE ESTERASE,URINE SMALL (NEGATIVE); NITRITE,URINE NEGATIVE (NEGATIVE); OCCULT BLOOD,URINE TRACE-INTACT (NEGATIVE); PH,URINE 5.5 (5.0-8.0); PROTEIN,URINE >=300 mg/dL (NEGATIVE); UROBILINOGEN,URINE 0.2 EU/dL (0.2)
[2024-05-14 20:15] LABS: RBC,URINE 0-5 /HPF (NOT SEEN); SQUAMOUS EPITHELIAL CELLS,UR OCCASIONAL /HPF (NOT SEEN); WBC,URINE 20-30 /HPF (NOT SEEN)
[2024-05-14 20:16] LABS: BACTERIA,URINE MODERATE /HPF (NOT SEEN); HYALINE CASTS,URINE FEW
[2024-05-14] MEDS: cefTRIAXone 2 GM Vial IVPUSH ONE (20:29)
== END 2024-05-14 20:45 | disposition home or self-care (01) ==
LOC: VM.ED 17:22
DX: N17.9 Acute kidney failure, unspecified (principal); N39.0 Urinary tract infection, site not specified; R11.2 Nausea with vomiting, unspecified; I11.0 Hypertensive heart disease with heart failure; I50.9 Heart failure, unspecified; E78.00 Pure hypercholesterolemia, unspecified; J45.909 Unspecified asthma, uncomplicated; E11.9 Type 2 diabetes mellitus without complications; E66.9 Obesity, unspecified; Z79.899 Other long term (current) drug therapy; Z79.82 Long term (current) use of aspirin; Z88.8 Allergy status to other drugs, medicaments and biological substances; Z88.2 Allergy status to sulfonamides
CPT/HCPCS: 0241U; 36415; 74176; 80048; 80053; 81001; 85025; 87086; 87088; 87186; 96361; 96374; 96375; 99284-25; J0696; J2405; J2765; J7120

== ENCOUNTER 2025-09-08 12:18 | Observation (INO) | payer MEDICARE, OTHER, MEDICAID ==
[2025-09-08] MEDS ORDERED: Ondansetron 4 MG Tab.DIS PO PRN (17:48)
[2025-09-08] MEDS ORDERED: Albuterol HFA 18 Gm Inhaler INH PRN (17:51)
[2025-09-08] MEDS ORDERED: Camphor/Menthol 0.5-0.5% Lotion 222 ML Bottle TOP PRN (17:51)
[2025-09-08] MEDS ORDERED: Non-Formulary Medication 1 Each (Budesonide/Formoterol Fumarate [Symbicort 160-4.5 Mcg Inh PO SCH (21:00)
[2025-09-08] MEDS: Albuterol 0.083% 2.5 MG/3 ML Neb Soln INH SCH (21:13)
[2025-09-08] MEDS: Budesonide 0.5 MG/2 ML Neb Susp INH SCH (21:26)
[2025-09-09] MEDS: Cholecalciferol (Vitamin D3) 25 MCG Tab PO SCH (08:26)
[2025-09-09] MEDS: Cyanocobalamin (Vitamin B12) 1,000 MCG Tab PO SCH (08:26)
[2025-09-09] MEDS: buPROPion 150 MG Tab.ER PO SCH (08:26)
[2025-09-09] MEDS ORDERED: Albuterol 0.083% 2.5 MG/3 ML Neb Soln INH PRN (08:33)
[2025-09-09] MEDS: Semaglutide [Ozempic] 2 MG/0.75 ML Pen.Injctr SQ SCH (18:00)
[2025-09-10 06:55] LABS: BASOPHILS ABSOLUTE AUTO 0.0 x10^3/uL (0.0-0.2); BASOPHILS PERCENT AUTO 0.1 % (0.2-1.2); EOSINOPHILS ABSOLUTE AUTO 0.0 x10^3/uL (0.0-0.5); EOSINOPHILS PERCENT AUTO 0.2 % (0.0-4.0); IMMATURE GRAN ABSOLUTE AUTO 0.02 x10^3/uL (0.00-0.07); IMMATURE GRAN PERCENT AUTO 0.20 % (0.00-0.43); LYMPHOCYTES ABSOLUTE AUTO 1.0 x10^3/uL (1.0-4.8); LYMPHOCYTES PERCENT AUTO 9.9 % (25.0-50.0); MONOCYTES ABSOLUTE AUTO 0.7 x10^3/uL (0.0-0.8); MONOCYTES PERCENT AUTO 7.7 % (2.0-11.0); NEUTROPHILS ABSOLUTE AUTO 7.9 x10^3/uL (1.8-7.7); NEUTROPHILS PERCENT AUTO 81.9 % (50.0-80.0); PLATELET COUNT,PLT 142 x10^3/uL (130-400); RED BLOOD CELL COUNT 2.92 x10^6/uL (4.00-5.50); WHITE BLOOD CELL COUNT,WBC 9.7 x10^3/uL (4.0-10.0)
[2025-09-10 07:16] LABS: A/G RATIO 0.74; ALANINE AMINOTRANSFERASE,ALT 7.0 U/L (14-59); ASPARTATE AMNIOTRANSFERASE,AST 15.0 U/L (15-37); BILIRUBIN TOTAL 0.5 mg/dL (0.2-1.0); BLOOD UREA NITROGEN,BUN 25.0 mg/dL (7-18); CARBON DIOXIDE,CO2 26.0 mmol/L (21-32); CHLORIDE,CL 104.0 mmol/L (98-107); CREATININE 1.5 mg/dL (0.55-1.02); EST CRCL DRUG DOSING (CG) 30.5 mL/min; GLUCOSE RANDOM 123.0 mg/dL (70-99); POTASSIUM,K 4.4 mmol/L (3.5-5.1); PROTEIN TOTAL,TP 6.1 g/dL (6.4-8.2); SODIUM,NA 138.0 mmol/L (136-145)
[2025-09-10 07:17] LABS: ESTIMATED GFR 37.0 mL/min (>=60)
[2025-09-10] MEDS: Sennosides/Docusate Sodium 50-8.6 MG Tab PO SCH (09:43)
[2025-09-15] MEDS ORDERED: Ergocalciferol (Vitamin D2) 1.25 MG Cap PO SCH (09:00)
== END 2025-09-10 10:00 | disposition swing bed (61) ==
LOC: VM.ED 12:18 → VM.MS 16:38
PROVIDERS: ADMIT Nurse Practitioner Family; ATTEND Internal Medicine
DX: S42.294A Other nondisplaced fracture of upper end of right humerus, initial encounter for closed fracture (principal); M81.0 Age-related osteoporosis without current pathological fracture; I12.9 Hypertensive chronic kidney disease with stage 1 through stage 4 chronic kidney disease, or unspecified chronic kidney disease; E11.22 Type 2 diabetes mellitus with diabetic chronic kidney disease; N18.32 Chronic kidney disease, stage 3b; D63.1 Anemia in chronic kidney disease; E55.9 Vitamin D deficiency, unspecified; E53.8 Deficiency of other specified B group vitamins; E11.40 Type 2 diabetes mellitus with diabetic neuropathy, unspecified; K21.9 Gastro-esophageal reflux disease without esophagitis; F32.9 Major depressive disorder, single episode, unspecified; E66.9 Obesity, unspecified; Z88.2 Allergy status to sulfonamides; Z88.8 Allergy status to other drugs, medicaments and biological substances; Z91.041 Radiographic dye allergy status; Z79.899 Other long term (current) drug therapy; Z79.82 Long term (current) use of aspirin; Z68.30 Body mass index [BMI] 30.0-30.9, adult; Z87.891 Personal history of nicotine dependence; W19.XXXA Unspecified fall, initial encounter
CPT/HCPCS: 36415; 70450; 73020-RT; 73030-RT; 73060-RT; 80053; 82947; 85025; 94640; 94760; 96361; 96374; 96376; 97116-GP; 97161-GP; 97165-GO; 97535-GO; 99284; 99285-25; A9270-GY; G0378; J1171; J7030; J7512

== ENCOUNTER 2025-09-10 09:52 | Inpatient (IN) | payer OTHER, MEDICAID, MEDICARE ==
[2025-09-10] MEDS ORDERED: Albuterol 0.083% 2.5 MG/3 ML Neb Soln INH PRN (10:32)
[2025-09-10] MEDS ORDERED: Camphor/Menthol 0.5-0.5% Lotion 222 ML Bottle TOP PRN (10:32)
[2025-09-10] MEDS ORDERED: Albuterol 0.083% 2.5 MG/3 ML Neb Soln INH SCH (11:00)
[2025-09-10] MEDS: Formoterol/Mometasone 100-5 MCG 8.8 GM Inhaler INH SCH (13:04)
[2025-09-10] MEDS: Sennosides/Docusate Sodium 50-8.6 MG Tab PO SCH (20:08)
[2025-09-10] MEDS ORDERED: Budesonide 0.5 MG/2 ML Neb Susp INH SCH (21:00)
[2025-09-11] MEDS: buPROPion 150 MG Tab.ER PO SCH (08:48)
[2025-09-11] MEDS: Cyanocobalamin (Vitamin B12) 1,000 MCG Tab PO SCH (08:48)
[2025-09-11] MEDS: Cholecalciferol (Vitamin D3) 25 MCG Tab PO SCH (08:50)
[2025-09-12 06:48] LABS: BASOPHILS ABSOLUTE AUTO 0.0 x10^3/uL (0.0-0.2); BASOPHILS PERCENT AUTO 0.3 % (0.2-1.2); EOSINOPHILS ABSOLUTE AUTO 0.4 x10^3/uL (0.0-0.5); EOSINOPHILS PERCENT AUTO 5.0 % (0.0-4.0); IMMATURE GRAN ABSOLUTE AUTO 0.02 x10^3/uL (0.00-0.07); IMMATURE GRAN PERCENT AUTO 0.30 % (0.00-0.43); LYMPHOCYTES ABSOLUTE AUTO 1.4 x10^3/uL (1.0-4.8); LYMPHOCYTES PERCENT AUTO 18.3 % (25.0-50.0); MONOCYTES ABSOLUTE AUTO 0.7 x10^3/uL (0.0-0.8); MONOCYTES PERCENT AUTO 9.0 % (2.0-11.0); NEUTROPHILS ABSOLUTE AUTO 5.2 x10^3/uL (1.8-7.7); NEUTROPHILS PERCENT AUTO 67.1 % (50.0-80.0); PLATELET COUNT,PLT 155 x10^3/uL (130-400); RED BLOOD CELL COUNT 3.18 x10^6/uL (4.00-5.50); WHITE BLOOD CELL COUNT,WBC 7.7 x10^3/uL (4.0-10.0)
[2025-09-12 07:02] LABS: BLOOD UREA NITROGEN,BUN 22.0 mg/dL (7-18); CARBON DIOXIDE,CO2 29.0 mmol/L (21-32); CHLORIDE,CL 103.0 mmol/L (98-107); CREATININE 1.3 mg/dL (0.55-1.02); EST CRCL DRUG DOSING (CG) 28.1 mL/min; GLUCOSE RANDOM 89.0 mg/dL (70-99); POTASSIUM,K 4.6 mmol/L (3.5-5.1); SODIUM,NA 139.0 mmol/L (136-145)
[2025-09-12 07:08] LABS: ESTIMATED GFR 44.0 mL/min (>=60)
[2025-09-12] MEDS: Ondansetron 4 MG Tab.DIS PO PRN (08:42)
[2025-09-15 06:57] LABS: BASOPHILS ABSOLUTE AUTO 0.0 x10^3/uL (0.0-0.2); BASOPHILS PERCENT AUTO 0.5 % (0.2-1.2); EOSINOPHILS ABSOLUTE AUTO 0.4 x10^3/uL (0.0-0.5); EOSINOPHILS PERCENT AUTO 5.6 % (0.0-4.0); IMMATURE GRAN ABSOLUTE AUTO 0.02 x10^3/uL (0.00-0.07); IMMATURE GRAN PERCENT AUTO 0.30 % (0.00-0.43); LYMPHOCYTES ABSOLUTE AUTO 1.4 x10^3/uL (1.0-4.8); LYMPHOCYTES PERCENT AUTO 21.3 % (25.0-50.0); MONOCYTES ABSOLUTE AUTO 0.6 x10^3/uL (0.0-0.8); MONOCYTES PERCENT AUTO 8.9 % (2.0-11.0); NEUTROPHILS ABSOLUTE AUTO 4.1 x10^3/uL (1.8-7.7); NEUTROPHILS PERCENT AUTO 63.4 % (50.0-80.0); PLATELET COUNT,PLT 185 x10^3/uL (130-400); RED BLOOD CELL COUNT 3.23 x10^6/uL (4.00-5.50); WHITE BLOOD CELL COUNT,WBC 6.4 x10^3/uL (4.0-10.0)
[2025-09-15 07:16] LABS: BLOOD UREA NITROGEN,BUN 26.0 mg/dL (7-18); CARBON DIOXIDE,CO2 31.0 mmol/L (21-32); CHLORIDE,CL 103.0 mmol/L (98-107); CREATININE 1.2 mg/dL (0.55-1.02); EST CRCL DRUG DOSING (CG) 30.44 mL/min; GLUCOSE RANDOM 83.0 mg/dL (70-99); POTASSIUM,K 4.6 mmol/L (3.5-5.1); SODIUM,NA 138.0 mmol/L (136-145)
[2025-09-15 07:21] LABS: ESTIMATED GFR 48.0 mL/min (>=60)
[2025-09-15] MEDS: Ergocalciferol (Vitamin D2) 1.25 MG Cap PO SCH (09:11)
[2025-09-15] MEDS: Triamcinolone Acetonide 0.1% Crm 15 GM Tube TOP SCH (09:58)
[2025-09-16] MEDS: Sennosides/Docusate Sodium 50-8.6 MG Tab PO SCH (10:04)
[2025-09-16] MEDS: SEMAGLUTIDE 2 MG/0.75 ML SQ SCH (17:41)
[2025-09-22 06:54] LABS: BASOPHILS ABSOLUTE AUTO 0.0 x10^3/uL (0.0-0.2); BASOPHILS PERCENT AUTO 0.5 % (0.2-1.2); EOSINOPHILS ABSOLUTE AUTO 0.2 x10^3/uL (0.0-0.5); EOSINOPHILS PERCENT AUTO 2.7 % (0.0-4.0); IMMATURE GRAN ABSOLUTE AUTO 0.02 x10^3/uL (0.00-0.07); IMMATURE GRAN PERCENT AUTO 0.20 % (0.00-0.43); LYMPHOCYTES ABSOLUTE AUTO 1.6 x10^3/uL (1.0-4.8); LYMPHOCYTES PERCENT AUTO 19.7 % (25.0-50.0); MONOCYTES ABSOLUTE AUTO 0.6 x10^3/uL (0.0-0.8); MONOCYTES PERCENT AUTO 7.5 % (2.0-11.0); NEUTROPHILS ABSOLUTE AUTO 5.7 x10^3/uL (1.8-7.7); NEUTROPHILS PERCENT AUTO 69.4 % (50.0-80.0); PLATELET COUNT,PLT 178 x10^3/uL (130-400); RED BLOOD CELL COUNT 3.17 x10^6/uL (4.00-5.50); WHITE BLOOD CELL COUNT,WBC 8.1 x10^3/uL (4.0-10.0)
[2025-09-22 07:06] LABS: BLOOD UREA NITROGEN,BUN 24.0 mg/dL (7-18); CARBON DIOXIDE,CO2 31.0 mmol/L (21-32); CHLORIDE,CL 102.0 mmol/L (98-107); CREATININE 1.5 mg/dL (0.55-1.02); EST CRCL DRUG DOSING (CG) 24.35 mL/min; ESTIMATED GFR 37.0 mL/min (>=60); GLUCOSE RANDOM 82.0 mg/dL (70-99); POTASSIUM,K 4.5 mmol/L (3.5-5.1); SODIUM,NA 139.0 mmol/L (136-145)
[2025-09-24] MEDS ORDERED: Formoterol/Mometasone 100-5 MCG 8.8 GM Inhaler INH PRN (12:17)
[2025-09-27] MEDS: Cholecalciferol (Vitamin D3) 25 MCG Tab PO SCH (08:31)
[2025-09-29 06:53] LABS: BASOPHILS ABSOLUTE AUTO 0.0 x10^3/uL (0.0-0.2); BASOPHILS PERCENT AUTO 0.4 % (0.2-1.2); EOSINOPHILS ABSOLUTE AUTO 0.4 x10^3/uL (0.0-0.5); EOSINOPHILS PERCENT AUTO 4.5 % (0.0-4.0); IMMATURE GRAN ABSOLUTE AUTO 0.02 x10^3/uL (0.00-0.07); IMMATURE GRAN PERCENT AUTO 0.30 % (0.00-0.43); LYMPHOCYTES ABSOLUTE AUTO 1.7 x10^3/uL (1.0-4.8); LYMPHOCYTES PERCENT AUTO 21.7 % (25.0-50.0); MONOCYTES ABSOLUTE AUTO 0.6 x10^3/uL (0.0-0.8); MONOCYTES PERCENT AUTO 7.9 % (2.0-11.0); NEUTROPHILS ABSOLUTE AUTO 5.0 x10^3/uL (1.8-7.7); NEUTROPHILS PERCENT AUTO 65.2 % (50.0-80.0); PLATELET COUNT,PLT 193 x10^3/uL (130-400); RED BLOOD CELL COUNT 3.21 x10^6/uL (4.00-5.50); WHITE BLOOD CELL COUNT,WBC 7.7 x10^3/uL (4.0-10.0)
[2025-09-29 06:59] LABS: BLOOD UREA NITROGEN,BUN 23.0 mg/dL (7-18); CARBON DIOXIDE,CO2 29.0 mmol/L (21-32); CHLORIDE,CL 106.0 mmol/L (98-107); CREATININE 1.1 mg/dL (0.55-1.02); EST CRCL DRUG DOSING (CG) 33.21 mL/min; GLUCOSE RANDOM 79.0 mg/dL (70-99); POTASSIUM,K 4.0 mmol/L (3.5-5.1); SODIUM,NA 141.0 mmol/L (136-145)
[2025-09-29 07:00] LABS: ESTIMATED GFR 53.0 mL/min (>=60)
[2025-10-03] MEDS: Miconazole 2% Top Powder 45 GM Container TOP SCH (10:00)
== END 2025-10-03 15:45 | disposition home or self-care (01) | DRG 560 ==
LOC: VM.MS 11:00
PROVIDERS: ADMIT Internal Medicine; ATTEND Internal Medicine
DX: S42.201D Unspecified fracture of upper end of right humerus, subsequent encounter for fracture with routine healing (principal); F33.1 Major depressive disorder, recurrent, moderate; I13.0 Hypertensive heart and chronic kidney disease with heart failure and stage 1 through stage 4 chronic kidney disease, or unspecified chronic kidney disease; M81.0 Age-related osteoporosis without current pathological fracture; E11.22 Type 2 diabetes mellitus with diabetic chronic kidney disease; N18.32 Chronic kidney disease, stage 3b; E55.9 Vitamin D deficiency, unspecified; E53.8 Deficiency of other specified B group vitamins; E11.40 Type 2 diabetes mellitus with diabetic neuropathy, unspecified; K21.9 Gastro-esophageal reflux disease without esophagitis; D63.1 Anemia in chronic kidney disease; E78.00 Pure hypercholesterolemia, unspecified; E11.51 Type 2 diabetes mellitus with diabetic peripheral angiopathy without gangrene; F43.10 Post-traumatic stress disorder, unspecified; E66.9 Obesity, unspecified; D50.9 Iron deficiency anemia, unspecified; G47.33 Obstructive sleep apnea (adult) (pediatric); J45.20 Mild intermittent asthma, uncomplicated; N32.81 Overactive bladder; L30.9 Dermatitis, unspecified; K59.00 Constipation, unspecified; Z68.29 Body mass index [BMI] 29.0-29.9, adult; Z98.49 Cataract extraction status, unspecified eye; Z88.2 Allergy status to sulfonamides; Z88.8 Allergy status to other drugs, medicaments and biological substances; Z88.6 Allergy status to analgesic agent; Z91.041 Radiographic dye allergy status; Z79.1 Long term (current) use of non-steroidal anti-inflammatories (NSAID); Z79.82 Long term (current) use of aspirin; Z79.899 Other long term (current) drug therapy; Z79.51 Long term (current) use of inhaled steroids; Z87.891 Personal history of nicotine dependence; Z87.81 Personal history of (healed) traumatic fracture; Z90.89 Acquired absence of other organs; Z99.89 Dependence on other enabling machines and devices; Z98.891 History of uterine scar from previous surgery; Z98.890 Other specified postprocedural states; Z78.9 Other specified health status
CPT/HCPCS: 36415; 80048; 82947; 85025; 94640; 97110-GO; 97110-GP; 97116-GP; 97164-GP; 97530-GO; 97530-GP; 97535-GO; A9270-GY